=== PATIENT | male | born 1960 | race Caucasian/White ===

== ENCOUNTER 2021-12-13 12:15 | Emergency (ER) | payer BC ==
[~2021-12-13] VITALS: Ht 182.9 cm; Wt 85.3 kg
[2021-12-13] MEDS ORDERED: ACETAMINOPHEN 325 MG TAB PO NR (12:30)
[2021-12-13] MEDS ORDERED: CEPHALEXIN500 MG PO (13:42)
== END 2021-12-13 13:55 | disposition home or self-care (01) ==
LOC: ER 12:30
DX: S80.811A Abrasion, right lower leg, initial encounter (principal); W22.09XA Striking against other stationary object, initial encounter; Y93.01 Activity, walking, marching and hiking; Y92.098 Other place in other non-institutional residence as the place of occurrence of the external cause; I10 Essential (primary) hypertension; E11.9 Type 2 diabetes mellitus without complications; I25.10 Atherosclerotic heart disease of native coronary artery without angina pectoris
CPT/HCPCS: 99283